=== PATIENT | female | born 1990 | race African-American/Black ===

== ENCOUNTER 2020-01-17 22:13 | Emergency (ER) | payer OTHER, MEDICAID ==
[~2020-01-17] VITALS: Ht 165.1 cm; Wt 63.0 kg
[2020-01-17 22:16] VITALS: BP 103/69
[2020-01-17] MEDS ORDERED: IBUPROFEN 600MG TABLET PO ONE (23:45)
== END 2020-01-18 00:48 | disposition home or self-care (01) ==
LOC: ER 22:13
DX: F41.9 Anxiety disorder, unspecified (principal); R07.89 Other chest pain; F43.0 Acute stress reaction; F17.290 Nicotine dependence, other tobacco product, uncomplicated
CPT/HCPCS: 71045; 93005; 99283